=== PATIENT | male | born 1990 | race Caucasian/White ===

== ENCOUNTER 2021-10-25 07:55 | Emergency (ER) | payer BC ==
[~2021-10-25] VITALS: Ht 180.3 cm; Wt 145.0 kg
[2021-10-25 08:06] VITALS: BP 107/58
[2021-10-25] MEDS ORDERED: TETANUS, DIPHTHERIA, PERTUSSIS VAC/PF 0.5ML (>10YR OLD) IM ONE (08:15)
[2021-10-25] MEDS ORDERED: LIDOCAINE HCL/EPINEPHRINE 1%-EPI 1:100,000 20 ML VIAL INFIL ONE (08:15)
[2021-10-25] MEDS ORDERED: BACITRACIN ZINC OINT UDPKT TOP ONE (08:15)
== END 2021-10-25 09:30 | disposition home or self-care (01) ==
LOC: ER 07:55
DX: S51.811A Laceration without foreign body of right forearm, initial encounter (principal); W01.118A Fall on same level from slipping, tripping and stumbling with subsequent striking against other sharp object, initial encounter; Y93.89 Activity, other specified; Y92.89 Other specified places as the place of occurrence of the external cause
CPT/HCPCS: 12002; 90471; 90715; 99283; J3490; Z7610